=== PATIENT | male | born 1965 | race Caucasian/White ===

== ENCOUNTER 2017-03-31 16:41 | Emergency (ER) | payer OTHER, MEDICARE ==
[~2017-03-31] VITALS: Ht 170.2 cm; Wt 113.6 kg
[2017-03-31 17:19] VITALS: BP 144/86
[2017-03-31] MEDS ORDERED: KETOROLAC 60 MG/2 ML VIAL (J1885) IM ONE (17:30)
[2017-03-31] MEDS ORDERED: SOMA350T PO (18:29)
[2017-03-31] MEDS ORDERED: NAPR500T3 PO (18:30)
== END 2017-03-31 18:43 | disposition home or self-care (01) ==
LOC: M ED 17:24
DX: S23.3XXA Sprain of ligaments of thoracic spine, initial encounter (principal); S33.5XXA Sprain of ligaments of lumbar spine, initial encounter; X58.XXXA Exposure to other specified factors, initial encounter; Y92.019 Unspecified place in single-family (private) house as the place of occurrence of the external cause; Y93.9 Activity, unspecified; Y99.8 Other external cause status; G89.29 Other chronic pain; Z87.891 Personal history of nicotine dependence
CPT/HCPCS: 96372; 99282; J1885; J3360

== ENCOUNTER 2018-04-21 07:41 | Day surgery (SDC) | payer MEDICARE, OTHER ==
[2018-04-21] MEDS ORDERED: PROPOFOL 200 MG/20 ML VIAL As Ordered ×4 (07:52→09:25)
[2018-04-21] MEDS ORDERED: LIDOCAINE 2% MDV 20 ML VIAL As Ordered ×2 (07:53)
[2018-04-21] MEDS: NS 1,000 ML IV ×2 (08:00)
== END 2018-04-21 09:57 | disposition home or self-care (01) ==
LOC: M OPP 07:41
DX: Z12.11 Encounter for screening for malignant neoplasm of colon (principal); K64.0 First degree hemorrhoids; K57.30 Diverticulosis of large intestine without perforation or abscess without bleeding; G47.30 Sleep apnea, unspecified; I10 Essential (primary) hypertension; E78.00 Pure hypercholesterolemia, unspecified; F32.9 Major depressive disorder, single episode, unspecified; F17.290 Nicotine dependence, other tobacco product, uncomplicated; M62.830 Muscle spasm of back; Z79.899 Other long term (current) drug therapy
CPT/HCPCS: 45378

== ENCOUNTER 2018-09-11 12:13 | Emergency (ER) | payer MEDICARE, OTHER ==
[2018-09-11] MEDS: predniSONE 20 MG TAB PO (13:41)
[2018-09-11] MEDS: KETOROLAC 60 MG/2 ML VIAL (J1885) IM (13:47)
[2018-09-11] MEDS: LORazepam 2 MG/ML VIAL (J2060) IM (13:47)
== END 2018-09-11 15:07 | disposition home or self-care (01) ==
LOC: M ED 12:13
DX: M54.5 Low back pain (principal); G89.29 Other chronic pain; I10 Essential (primary) hypertension; Z79.899 Other long term (current) drug therapy
CPT/HCPCS: J1885

== ENCOUNTER 2019-11-29 15:33 | Emergency (ER) | payer MEDICARE, OTHER ==
[~2019-11-29] VITALS: Ht 167.6 cm; Wt 126.4 kg
[~2019-11-29 15:33] MED LIST: ATOR80TA59 PO; CHLO125TA PO; GEMF600T5 PO; METO1TAB32 PO; NAPR-885 PO; PERC5TAB12 PO; POTA10CA32 PO; PRED20TA PO; SOMA350T PO; VALI5TAB PO; VENL75CA2 PO
[2019-11-29] MEDS ORDERED: METF500T13 (15:42)
--- NOTE | 2019-11-29 16:22 | REP ---
Clinical: Trauma. Fall. Technique: AP, lateral, bilateral oblique views of the right elbow. Findings: Generalized age-related changes are appreciated. No definite acute fracture or dislocation identified. Impression: No definite acute fracture or dislocation. Electronically Signed by Krystian Williamson MD 11/29/2019 04:13 P
[2019-11-29 17:56] VITALS: BP 135/83
== END 2019-11-29 18:11 | disposition home or self-care (01) ==
LOC: M ED 15:33
DX: S50.01XA Contusion of right elbow, initial encounter (principal); W01.0XXA Fall on same level from slipping, tripping and stumbling without subsequent striking against object, initial encounter; Y92.018 Other place in single-family (private) house as the place of occurrence of the external cause; I10 Essential (primary) hypertension; E78.5 Hyperlipidemia, unspecified; F33.9 Major depressive disorder, recurrent, unspecified; G47.30 Sleep apnea, unspecified; Z79.899 Other long term (current) drug therapy

== ENCOUNTER 2023-12-06 18:27 | Emergency (ER) | payer MEDICARE, OTHER ==
[~2023-12-06] VITALS: Ht 167.6 cm; Wt 127.3 kg
[~2023-12-06 18:27] MED LIST changes: +METF500T13; -POTA10CA32 PO; +POTA10CA60 PO
[2023-12-06 18:28] VITALS: TEMP 97.6
[2023-12-06] MEDS ORDERED: ROSU40TA4 PO (18:38)
[2023-12-06] MEDS ORDERED: LOSA50TA28 PO (18:38)
[2023-12-06] MEDS ORDERED: JANU100T PO (18:38)
[2023-12-06] MEDS ORDERED: JARD1TAB PO (18:38)
[2023-12-06] MEDS: OXYCODONE/APAP 5MG/325MG(HOME DOSE PACK) PO ONE (21:23)
[2023-12-06 21:38] VITALS: BP 134/97; O2SAT 99
== END 2023-12-06 21:40 | disposition home or self-care (01) ==
LOC: M ED 18:27
DX: S93.402A Sprain of unspecified ligament of left ankle, initial encounter (principal); Y92.019 Unspecified place in single-family (private) house as the place of occurrence of the external cause; Y93.9 Activity, unspecified; Y99.9 Unspecified external cause status; I10 Essential (primary) hypertension; E78.5 Hyperlipidemia, unspecified; F32.9 Major depressive disorder, single episode, unspecified; Z79.899 Other long term (current) drug therapy; Z79.84 Long term (current) use of oral hypoglycemic drugs

== ENCOUNTER 2024-10-19 01:37 | Inpatient (IN) | payer MEDICARE, OTHER ==
[~2024-10-19] VITALS: Ht 167.6 cm; Wt 128.3 kg
[~2024-10-19 01:37] MED LIST changes: +JANU100T PO; +JARD1TAB PO; +LOSA50TA28 PO; -METF500T13; +METF500T13 PO; -POTA10CA60 PO; +POTA10CA70 PO; +ROSU40TA81 PO
[2024-10-19 04:27] LABS: BASO % 0.3 % (0.0-1.0); EOS % 0.3 % (0.0-3.0); HEMATOCRIT 46.5 % (42.0-52.0); HEMOGLOBIN 15.4 g/dl (13.5-17.5); LYMPH # 1.7 10^3/uL (1.5-5.0); LYMPH % 13.8 % (24.0-44.0); MEAN CORPUSCULAR HEMOGLOBIN 30.3 pg (27.0-33.0); MEAN CORPUSCULAR HGB CONC 33.1 g/dl (32.0-36.5); MEAN CORPUSCULAR VOLUME 91.5 fl (80.0-96.0); MONO # 0.9 10^3/uL (0.0-0.8); MONO % 7.3 % (2.0-8.0); NEUTROPHILS # 9.3 10^3/uL (1.5-8.5); NEUTROPHILS % 77.9 % (36.0-66.0); PLATELET COUNT, AUTOMATED 329 10^3/uL (150-450); RED BLOOD COUNT 5.08 10^6/uL (4.30-6.10)
[2024-10-19 04:44] LABS: LIPASE 259 U/L (12-53)
[2024-10-19 04:46] LABS: ALBUMIN 4.8 G/DL (3.2-5.2); ALKALINE PHOSPHATASE 61 U/L (40-129); ALT/SGPT 23 U/L (7.0-40); AST/SGOT 11 U/L (<34); BILIRUBIN,DIRECT 0.3 MG/DL (<0.4); BLOOD UREA NITROGEN 20 MG/DL (9-23); CALCIUM LEVEL 10.2 MG/DL (8.5-10.1); CARBON DIOXIDE LEVEL 24 MMOL/L (20-31); CHLORIDE LEVEL 104 MMOL/L (98-107); CREATININE FOR GFR 1.11 MG/DL (0.70-1.30); GLOMERULAR FILTRATION RATE > 60.0 (>56); GLUCOSE, FASTING 144 MG/DL (60-100); POTASSIUM SERUM 4.1 MMOL/L (3.5-5.1); SODIUM LEVEL 137 MMOL/L (136-145); TOTAL PROTEIN 7.9 G/DL (5.7-8.2)
[2024-10-19] MEDS ORDERED: ISOVUE-370 76% 100ML VIAL As Ordered ONE (06:30)
[2024-10-19] MEDS: ONDANSETRON 4MG 2ML VIAL IV ONE (06:49)
[2024-10-19] MEDS: NS (Normal Saline) 0.9% 1,000 ML IV ONE (06:50)
[2024-10-19] MEDS: ACETAMINOPHEN *IV* 1,000 MG in IV 1 EA IV ONE (06:54)
[2024-10-19] MEDS: HYDROMORPHONE HCL 0.5 MG/ 0.5 ML SYRINGE IV ONE (08:15)
[2024-10-19] MEDS ORDERED: GLUCOSE 4 GM CHEW PO PRN (09:55)
[2024-10-19] MEDS ORDERED: DEXTROSE 50% 50ML SYRINGE IV PRN (09:55)
[2024-10-19] MEDS ORDERED: GLUCAGON INJ 1MG VIAL SC PRN (09:55)
[2024-10-19] MEDS ORDERED: LOPI600T PO (10:08)
[2024-10-19] MEDS ORDERED: HOME MED LIST COMPLETE! XX SCH (10:10)
[2024-10-19] MEDS ORDERED: HYDROMORPHONE HCL 0.5 MG/ 0.5 ML SYRINGE IV PRN ×2 (10:40)
[2024-10-19] MEDS: LR 1,000 ML IV SCH (10:55)
[2024-10-19] MEDS: INSULIN LISPRO (NovoLOG) PER UNIT SC SCH (11:00)
[2024-10-19 15:38] VITALS: BP 122/81; TEMP 98.1; O2SAT 94
[2024-10-19] MEDS ORDERED: LORazepam 2 MG TAB PO PRN (18:55)
[2024-10-19 19:47] VITALS: BP 136/63; TEMP 97.8; O2SAT 96
[2024-10-19] MEDS: ENOXAPARIN 40MG/0.4ML SYRINGE (J1650 PER 10MG) SC SCH (20:29)
[2024-10-19 22:00] VITALS: BP 136/63
[2024-10-20 04:00] VITALS: BP 150/76; TEMP 97.9; O2SAT 95
[2024-10-20 06:00] VITALS: BP 150/76
[2024-10-20 08:58] LABS: HEMOGLOBIN 13.6 g/dl (13.5-17.5); MEAN CORPUSCULAR HEMOGLOBIN 30.2 pg (27.0-33.0); MEAN CORPUSCULAR HGB CONC 32.4 g/dl (32.0-36.5); MEAN CORPUSCULAR VOLUME 93.3 fl (80.0-96.0); PLATELET COUNT, AUTOMATED 259 10^3/uL (150-450); WHITE BLOOD COUNT 9.1 10^3/uL (4.0-10.0)
[2024-10-20 09:10] LABS: AMYLASE 71 U/L (30-118)
[2024-10-20 09:12] LABS: ALBUMIN 4.2 G/DL (3.2-5.2); ALKALINE PHOSPHATASE 56 U/L (40-129); ALT/SGPT 19 U/L (7.0-40); AST/SGOT 12 U/L (<34); BILIRUBIN,TOTAL 0.7 MG/DL (0.3-1.2); BLOOD UREA NITROGEN 15 MG/DL (9-23); CALCIUM LEVEL 9.1 MG/DL (8.5-10.1); CARBON DIOXIDE LEVEL 25 MMOL/L (20-31); CHLORIDE LEVEL 108 MMOL/L (98-107); CREATININE FOR GFR 0.93 MG/DL (0.70-1.30); GLOMERULAR FILTRATION RATE > 60.0 (>56); GLUCOSE, FASTING 89 MG/DL (60-100); MAGNESIUM LEVEL 1.9 MG/DL (1.8-2.4); POTASSIUM SERUM 3.8 MMOL/L (3.5-5.1); SODIUM LEVEL 143 MMOL/L (136-145); TOTAL PROTEIN 6.9 G/DL (5.7-8.2)
[2024-10-20 12:00] VITALS: BP 129/61; TEMP 99.1; O2SAT 96
[2024-10-20] MEDS ORDERED: E-Z-PAQUE 96% w/w SUSP 176GM BTL As Ordered ONE (12:10)
[2024-10-20 14:00] VITALS: BP 148/74
[2024-10-20] MEDS ORDERED: ACETAMINOPHEN 500 MG TAB PO SCH (14:00)
[2024-10-20] MEDS: PANTOPRAZOLE 40MG VIAL IV SCH ×2 (14:47→20:48)
[2024-10-20 15:37] LABS: HEMATOCRIT 40.8 % (42.0-52.0); HEMOGLOBIN 13.1 g/dl (13.5-17.5)
[2024-10-20 16:08] LABS: BLOOD UREA NITROGEN 14 MG/DL (9-23); CALCIUM LEVEL 8.7 MG/DL (8.5-10.1); CARBON DIOXIDE LEVEL 26 MMOL/L (20-31); CHLORIDE LEVEL 108 MMOL/L (98-107); CREATININE FOR GFR 0.97 MG/DL (0.70-1.30); GLOMERULAR FILTRATION RATE > 60.0 (>56); GLUCOSE, FASTING 84 MG/DL (60-100); POTASSIUM SERUM 3.6 MMOL/L (3.5-5.1); SODIUM LEVEL 142 MMOL/L (136-145)
[2024-10-20 19:49] VITALS: BP 122/55; TEMP 99.2; O2SAT 93
[2024-10-20] MEDS ORDERED: DEXTROSE 50% 50ML SYRINGE IV PRN (20:50)
[2024-10-20] MEDS ORDERED: GLUCOSE 4 GM CHEW PO PRN (20:50)
[2024-10-20] MEDS ORDERED: GLUCAGON INJ 1MG VIAL SC PRN (20:50)
[2024-10-20] MEDS: INSULIN LISPRO (NovoLOG) PER UNIT SC SCH (21:00)
[2024-10-20 22:16] LABS: HEMATOCRIT 37.9 % (42.0-52.0); HEMOGLOBIN 12.3 g/dl (13.5-17.5)
[2024-10-20 22:38] LABS: BLOOD UREA NITROGEN 13 MG/DL (9-23); CALCIUM LEVEL 8.5 MG/DL (8.5-10.1); CARBON DIOXIDE LEVEL 26 MMOL/L (20-31); CHLORIDE LEVEL 108 MMOL/L (98-107); CREATININE FOR GFR 0.96 MG/DL (0.70-1.30); GLOMERULAR FILTRATION RATE > 60.0 (>56); GLUCOSE, FASTING 81 MG/DL (60-100); POTASSIUM SERUM 3.5 MMOL/L (3.5-5.1); SODIUM LEVEL 141 MMOL/L (136-145)
[2024-10-21] MEDS: ACETAMINOPHEN *IV* 1,000 MG in IV 1 EA IV PRN (00:35)
[2024-10-21 03:11] LABS: HEMATOCRIT 37.6 % (42.0-52.0); HEMOGLOBIN 12.1 g/dl (13.5-17.5); MEAN CORPUSCULAR HGB CONC 32.2 g/dl (32.0-36.5); MEAN CORPUSCULAR VOLUME 93.1 fl (80.0-96.0); PLATELET COUNT, AUTOMATED 232 10^3/uL (150-450); RED BLOOD COUNT 4.04 10^6/uL (4.30-6.10); WHITE BLOOD COUNT 6.4 10^3/uL (4.0-10.0)
[2024-10-21 03:35] LABS: BLOOD UREA NITROGEN 12 MG/DL (9-23); CALCIUM LEVEL 8.5 MG/DL (8.5-10.1); CARBON DIOXIDE LEVEL 27 MMOL/L (20-31); CHLORIDE LEVEL 105 MMOL/L (98-107); CREATININE FOR GFR 0.98 MG/DL (0.70-1.30); GLOMERULAR FILTRATION RATE > 60.0 (>56); GLUCOSE, FASTING 90 MG/DL (60-100); POTASSIUM SERUM 3.5 MMOL/L (3.5-5.1); SODIUM LEVEL 142 MMOL/L (136-145)
[2024-10-21 03:53] VITALS: BP 126/61; TEMP 99.1; O2SAT 96
[2024-10-21] MEDS: INSULIN LISPRO (NovoLOG) PER UNIT SC SCH (07:30)
[2024-10-21] MEDS ORDERED: PANTOPRAZOLE 40MG TAB (PROTONIX) PO SCH ×2 (09:00→21:00)
[2024-10-21 09:10] LABS: BLOOD UREA NITROGEN 11 MG/DL (9-23); CALCIUM LEVEL 8.4 MG/DL (8.5-10.1); CARBON DIOXIDE LEVEL 26 MMOL/L (20-31); CHLORIDE LEVEL 105 MMOL/L (98-107); CREATININE FOR GFR 0.91 MG/DL (0.70-1.30); GLOMERULAR FILTRATION RATE > 60.0 (>56); GLUCOSE, FASTING 141 MG/DL (60-100); POTASSIUM SERUM 3.5 MMOL/L (3.5-5.1); SODIUM LEVEL 141 MMOL/L (136-145)
[2024-10-21 11:56] VITALS: BP 127/69; TEMP 98.8; O2SAT 97
[2024-10-21] MEDS: METOPROLOL SUCC *XL* 25MG TAB (TopROL *XL*) PO SCH (13:04)
[2024-10-21 13:05] VITALS: BP 127/69
[2024-10-21] MEDS: LOSARTAN 50MG TABLET PO SCH (13:05)
[2024-10-21] MEDS: VENLAFAXINE **XR** 75MG CAPSULE PO SCH (13:05)
[2024-10-21] MEDS: ROSUVASTATIN 10 MG TAB (CRESTOR) PO SCH (13:07)
[2024-10-21] MEDS ORDERED: PANT40TA29 PO (14:12)
[2024-10-21 16:20] LABS: BLOOD UREA NITROGEN 12 MG/DL (9-23); CALCIUM LEVEL 8.6 MG/DL (8.5-10.1); CARBON DIOXIDE LEVEL 28 MMOL/L (20-31); CHLORIDE LEVEL 106 MMOL/L (98-107); CREATININE FOR GFR 0.95 MG/DL (0.70-1.30); GLOMERULAR FILTRATION RATE > 60.0 (>56); GLUCOSE, FASTING 155 MG/DL (60-100); POTASSIUM SERUM 3.6 MMOL/L (3.5-5.1); SODIUM LEVEL 139 MMOL/L (136-145)
== END 2024-10-21 16:12 | disposition home or self-care (01) | DRG 439 ==
LOC: M ED 01:37 → M ED INP 09:51 → M MS4PR 15:35
PROVIDERS: ADMIT Student in an Organized Health Care Education/Training Program; ATTEND Student in an Organized Health Care Education/Training Program
DX: K85.20 Alcohol induced acute pancreatitis without necrosis or infection (principal); K56.600 Partial intestinal obstruction, unspecified as to cause; E11.9 Type 2 diabetes mellitus without complications; E78.5 Hyperlipidemia, unspecified; G89.29 Other chronic pain; M53.3 Sacrococcygeal disorders, not elsewhere classified; I10 Essential (primary) hypertension; K52.9 Noninfective gastroenteritis and colitis, unspecified; D64.9 Anemia, unspecified; F17.210 Nicotine dependence, cigarettes, uncomplicated; K42.9 Umbilical hernia without obstruction or gangrene; Z79.84 Long term (current) use of oral hypoglycemic drugs; Z79.899 Other long term (current) drug therapy